=== PATIENT | male | born 1990 | race Two or more races ===

== ENCOUNTER 2021-04-25 06:44 | Emergency (ER) | payer SELFPAY ==
[~2021-04-25] VITALS: Ht 167.6 cm; Wt 84.8 kg
[2021-04-25 06:51] VITALS: BP 123/56
--- NOTE | 2021-04-25 07:12 | NUR ---
THIS IS A 30 YEAR OLD MALE WHO C/O OF PEARLS THAT WAS PLACED UNDER [place] 2 WEEKS AGO AND NOW THERE IS DISCHARGE FROM WOUND AND SWELLING.
--- NOTE | 2021-04-25 08:06 | NUR ---
Patient/Caregiver given discharge instructions and they have confirmed that they understand the instructions. Patient ambulatory with steady gait. NAD, all questions answered appropriately, denies additional needs at this time. No personal belongings left in room after discharge.
== END 2021-04-25 08:14 | disposition home or self-care (01) ==
LOC: ED 08:10
DX: N48.22 Cellulitis of corpus cavernosum and penis (principal)
CPT/HCPCS: 99283